=== PATIENT | female | born 1995 | race African-American/Black ===

== ENCOUNTER 2018-11-02 17:42 | Emergency (ER) | payer MEDICAID ==
[~2018-11-02] VITALS: Ht 170.2 cm; Wt 104.5 kg
[2018-11-02] MEDS ORDERED: CYCLOBENZAPRINE HCL 10 MG TABLET PO ONE (18:45)
[2018-11-02] MEDS ORDERED: IBUPROFEN 800 MG TABLET PO ONE (18:45)
[2018-11-02 19:40] VITALS: BP 143/75
== END 2018-11-02 20:13 | disposition home or self-care (01) ==
LOC: EMS 17:43
DX: S39.012A Strain of muscle, fascia and tendon of lower back, initial encounter (principal); X58.XXXA Exposure to other specified factors, initial encounter; Y93.89 Activity, other specified; Y92.89 Other specified places as the place of occurrence of the external cause; Y99.8 Other external cause status